=== PATIENT | male | born 1990 | race American Indian/Alaskan Native ===

== ENCOUNTER 2017-06-19 13:55 | Emergency (ER) | payer MEDICAID, OTHER ==
[2017-06-19 14:26] VITALS: BMI 22.1
[2017-06-19 14:28] VITALS: O2SAT 99
--- NOTE | 2017-06-19 14:39 | C.PDOC ---
History Of Present Illness Artie Malave is a 26 year old male with a past medical history of asthma, who presents complaining of a sore throat, congestion, and cough, persistent for the past month. Patient has also developed an achy pain in the muscles of his lower back. He is short of breath intermittently, for which he uses his inhaler with improvement. Patient also reports fever, and has been taking Dayquil and Nyquil on and off with improvement. PMD: [facility] Time Seen by Provider: 06/19/17 14:29 Chief Complaint (Nursing): ENT Problem History Per: Patient History/Exam Limitations: no limitations Onset/Duration Of Symptoms: Days (x 1 month) Current Symptoms Are (Timing): Still Present Location Of Pain: Throat Past Medical History Reviewed: Historical Data, Nursing Documentation, Vital Signs Vital Signs: Last Vital Signs Temp 97.8 F 06/19/17 14:26 Pulse 97 H 06/19/17 14:26 Resp 20 06/19/17 14:26 BP 106/74 06/19/17 14:26 Pulse Ox 99 06/19/17 14:40 - Medical History PMH: Asthma Denies: Chronic Kidney Disease Surgical History: No Surg Hx Family History: States: Unknown Family Hx - Social History Hx Alcohol Use: Yes Hx Substance Use: Yes - Immunization History Hx Tetanus Toxoid Vaccination: No Hx Influenza Vaccination: No Hx Pneumococcal Vaccination: No Review Of Systems Except As Marked, All Systems Reviewed And Found Negative. Constitutional: Positive for: Fever ENT: Positive for: Nose Congestion, Throat Pain Respiratory: Positive for: Cough, Shortness of Breath Musculoskeletal: Positive for: Back Pain (with cough) Physical Exam - Physical Exam Appears: Non-toxic, No Acute Distress Skin: Normal Color, Warm, Dry Head: Atraumatic, Normacephalic Eye(s): bilateral: Normal Inspection, PERRL, EOMI Ear(s): Bilateral: Normal Nose: Normal Oral Mucosa: Moist Throat: Erythema Neck: Normal, Normal ROM Lymphatic: No Adenopathy Cardiovascular: Rhythm Regular Respiratory: Normal Breath Sounds (Lungs clear to auscultation), No Rhonchi, No Wheezing Neurological/Psych: Oriented x3, Normal Speech ED Course And Treatment O2 Sat by Pulse Oximetry: 99 (RA) Pulse Ox Interpretation: Normal - Radiology CXR: Interpreted by Me CXR Interpretation: Yes: No Acute Disease Reevaluation Time: 15:00 Reassessment Condition: Unchanged Medical Decision Making Medical Decision Making: Time: 14:34 Initial Impression: 26 year old male with URI symptoms Initial Plan: * Chest X-Ray 2 views * Reevaluation Disposition Counseled Patient/Family Regarding: Studies Performed, Diagnosis, Need For Followup, Rx Given - Disposition Referrals: [facility] [Outside] Disposition: HOME/ ROUTINE Disposition Time: 15:00 Condition: STABLE Prescriptions: Amoxicillin 875 mg PO BID #20 tablet Instructions: Upper Respiratory Infection (ED), Pharyngitis (ED), Asthma (ED) Forms: [employer] (Urdu) - Clinical Impression Clinical Impression: Exacerbation of asthma, URI (upper respiratory infection), Pharyngitis - Scribe Statement The provider has reviewed the documentation as recorded by the Scribjeimy Marino All medical record entries made by the Jayyibjeimy were at my direction and personally dictated by me. I have reviewed the chart and agree that the record accurately reflects my personal performance of the history, physical exam, medical decision making, and the department course for this patient. I have also personally directed, reviewed, and agree with the discharge instructions and disposition.
[2017-06-19 15:07] VITALS: BP 112/68; PULSE 88; RESP 18; TEMP 98.2
--- NOTE | 2017-06-19 18:14 | RAD ---
HISTORY: cough x1 month COMPARISON: Chest radiographs 11/06/2015. TECHNIQUE: Chest PA and lateral FINDINGS: LUNGS: No active pulmonary disease. PLEURA: No significant pleural effusion identified. No pneumothorax apparent. CARDIOVASCULAR: Normal. OSSEOUS STRUCTURES: No significant abnormalities. VISUALIZED UPPER ABDOMEN: Normal. OTHER FINDINGS: None. IMPRESSION: No interval acute cardiopulmonary disease appreciated.
== END 2017-06-19 15:10 | disposition home or self-care (01) ==
LOC: C.ER 13:55
DX: J45.901 Unspecified asthma with (acute) exacerbation (principal); J02.9 Acute pharyngitis, unspecified; J06.9 Acute upper respiratory infection, unspecified

== ENCOUNTER 2018-01-26 12:51 | Emergency (ER) | payer OTHER ==
[2018-01-26 12:51] VITALS: BMI 22.1
[2018-01-26] MEDS ORDERED: Albuterol-Ipratrop 3 mg / 0.5 (3 ml) UD ONE ×2 (13:13→13:47)
[2018-01-26] MEDS ORDERED: Sodium Chloride 0.9% 1,000 ML IV ONE (13:26)
--- NOTE | 2018-01-26 13:26 | C.PDOC ---
History Of Present Illness 27-YEAR-OLD MALE, PRESENTS TO THE EMERGENCY DEPARTMENT WITH COMPLAINTS OF SEVERE SHORTNESS OF BREATH AND CHEST TIGHTNESS ONGOING FOR THE PAST SEVERAL DAYS. +ASHTMA HX, NO RELIEF DESP PUMP USE AT HOME. PT DENIES PRIOR ADMISSION FOR ASTHMA. 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 +RETRACT, DEC SOUNDS BL, +EXP WHEEZE, SPEAKING FULL SENTENCES REMAINDER NEG Time Seen by Provider: 01/26/18 13:14 Chief Complaint (Nursing): Shortness Of Breath History Per: Patient Past Medical History Reviewed: Historical Data, Nursing Documentation, Vital Signs Vital Signs: Last Vital Signs Temp Pulse Resp 20 01/26/18 13:17 BP Pulse Ox - Medical History PMH: Asthma Denies: Chronic Kidney Disease Family History: States: No Known Family Hx - Social History Hx Alcohol Use: Yes Hx Substance Use: Yes - Immunization History Hx Tetanus Toxoid Vaccination: No Hx Influenza Vaccination: No Hx Pneumococcal Vaccination: No Review Of Systems Constitutional: Negative for: Fever, Chills Cardiovascular: Negative for: Chest Pain, Palpitations Respiratory: Positive for: Shortness of Breath, Wheezing Gastrointestinal: Negative for: Nausea, Vomiting Musculoskeletal: Negative for: Back Pain Physical Exam - Physical Exam Appears: Non-toxic, Other (MOD DISTRESS) Skin: Normal Color, Warm, Dry Head: Atraumatic, Normacephalic Eye(s): bilateral: Normal Inspection, PERRL, EOMI Nose: Normal Oral Mucosa: Moist Lips: Normal Appearing Neck: Normal ROM Cardiovascular: Rhythm Regular, No Murmur Respiratory: Other ( +RETRACT, DEC SOUNDS BL, +EXP WHEEZE BL, SPEAKING FULL SENTENCES ) Gastrointestinal/Abdominal: Soft, No Tenderness, No Guarding, No Rebound Back: Normal Inspection Extremity: Normal ROM, No Deformity, No Swelling Neurological/Psych: Oriented x3, Normal Speech ED Course And Treatment - Laboratory Results Result Diagrams: 01/26/18 13:44 01/26/18 13:44 Progress - Re-Evaluation Re-evaluation Note: 01/26/18 14:10 CO PERSIST SOB. VSS. MILD IMPROVE B/L BS SP MEDS. 01/26/18 15:29 FEELS BETTER NARD WISHES DC NOW - Data Reviewed Data Reviewed: Lab, Diagnostic imaging, Old records Medical Decision Making Medical Decision Making: PS HE "ABSOLUTELY HAS TO BE AT WORK AT 8PM" PT IS AWARE OF NEED FOR APPROPRIATE MEDICAL OBSERVATION AND AGREES TO MANAGEMENT PLAN Disposition Counseled Patient/Family Regarding: Studies Performed, Diagnosis, Need For Followup, Rx Given - Disposition Referrals: YOUR,PMD [Other] [facility] [Outside] [facility] [Outside] Disposition: HOME/ ROUTINE Disposition Time: 15:30 Condition: IMPROVED Prescriptions: Albuterol HFA [Ventolin HFA 90 mcg/actuation (8 g)] 1 puff IH Q4 #1 inhaler predniSONE [Prednisone] 60 mg PO DAILY #12 tab Instructions: Asthma, Adult (DC) Forms: [employer] (Amharic) - Clinical Impression Clinical Impression: Exacerbation of asthma - Scribe Statement The provider has reviewed the documentation as recorded by the Scribe (Christa Hitchcock) All medical record entries made by the Scribe were at my direction and personally dictated by me. I have reviewed the chart and agree that the record accurately reflects my personal performance of the history, physical exam, medical decision making, and the department course for this patient. I have also personally directed, reviewed, and agree with the discharge instructions and disposition.
[2018-01-26] MEDS: Albuterol-Ipratrop 3 mg / 0.5 (3 ml) UD IH SCH ×3 (13:30→14:28)
[2018-01-26] MEDS ORDERED: MethylPREDNISolone 40 mg Vial ONE (13:48)
[2018-01-26] MEDS ORDERED: Sodium Chloride 0.9% 1,000 ML ONE (13:48)
[2018-01-26 13:53] LABS: BASO % 0.5 % (0.0-2.0); EOS # 0.7 K/uL (0.0-0.7); EOS % 13.4 % (0.0-4.0); HEMOGLOBIN 14.7 g/dL (12.0-18.0); LYMPH # 1.2 K/uL (1.0-4.3); LYMPH % 22.2 % (20.0-40.0); MEAN CELL VOLUME 86.5 fL (80.0-94.0); MEAN CORPUSCULAR HGB CONC 32.4 g/dL (33.0-37.0); MEAN PLATELET VOLUME 9.3 fL (7.2-11.7); MONO # 0.6 K/uL (0.0-0.8); MONO % 10.3 % (0.0-10.0); NEUT # 2.9 K/uL (1.8-7.0); NEUT % 53.6 % (50.0-75.0); NRBC % 0.1 % (0.0-2.0); RBC 5.26 Mil/uL (4.40-5.90); RED CELL DISTRIBUTION WIDTH 12.4 % (11.5-14.5); WHITE BLOOD COUNT 5.4 K/uL (4.8-10.8)
[2018-01-26 14:07] LABS: BLOOD UREA NITROGEN 11 mg/dL (9-20); CALCIUM 9.4 mg/dl (8.6-10.4); GFR AFRICAN-AMERICAN > 60; GFR NON-AFRICAN AMERICAN > 60
--- NOTE | 2018-01-26 14:15 | RAD ---
Date of service: 01/26/2018 PROCEDURE: CHEST RADIOGRAPH, 1 VIEW HISTORY: Shortness of breath COMPARISON: 06/19/2017 FINDINGS: LUNGS: The lungs are well inflated and clear. PLEURA: No pneumothorax or pleural fluid seen. CARDIOVASCULAR: Normal. OSSEOUS STRUCTURES: No significant abnormalities. VISUALIZED UPPER ABDOMEN: Normal. OTHER FINDINGS: None. IMPRESSION: No active pulmonary disease.
[2018-01-26 15:42] VITALS: BP 117/70; PULSE 88; RESP 18; TEMP 97.8; O2SAT 96
--- NOTE | 2018-01-28 12:24 | CARD ---
APPROVED REPORT Date of service: 01/26/2018 EKG Measurement Heart [id number] <Conclusion> Sinus tachycardia Otherwise normal ECG
== END 2018-01-26 16:39 | disposition home or self-care (01) ==
LOC: C.ER 12:51
DX: J45.901 Unspecified asthma with (acute) exacerbation (principal)
CPT/HCPCS: 71045; 80048; 85025; 93005; 94640; 96372; 96374; 96375; 99283; J1885; J2930; J3105; J7030

== ENCOUNTER 2018-03-20 15:01 | Emergency (ER) | payer OTHER ==
[2018-03-20 15:02] VITALS: BMI 22.1
[2018-03-20 15:08] VITALS: BP 122/72; PULSE 97; RESP 17; TEMP 97.6; O2SAT 97
[2018-03-20] MEDS ORDERED: Bacitracin 500 Units/gm Oint Foilpak UD TOP ONE (15:34)
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
[2018-03-20] MEDS ORDERED: Bacitracin 500 Units/gm Oint Foilpak UD ONE (15:45)
[2018-03-20] MEDS ORDERED: Tdap Vaccine 0.5 ml Vial (10-64 yrs) IM ONE (15:48)
[2018-03-20] MEDS ORDERED: Tetanus/Diphtheria Toxoids 0.5 ml Syringe IM ONE (15:57)
== END 2018-03-20 16:11 | disposition home or self-care (01) ==
LOC: C.ER 15:01
DX: S61.402A Unspecified open wound of left hand, initial encounter (principal); W22.8XXA Striking against or struck by other objects, initial encounter; Z23 Encounter for immunization

== ENCOUNTER 2018-04-21 09:12 | Emergency (ER) | payer OTHER ==
[2018-04-21 09:20] VITALS: BMI 24.0
[2018-04-21 09:22] VITALS: RESP 18
[2018-04-21] MEDS ORDERED: Albuterol-Ipratrop 3 mg / 0.5 (3 ml) UD ONE ×2 (09:59→10:26)
--- NOTE | 2018-04-21 10:19 | C.PDOC ---
History Of Present Illness 27 y/o male, with PMHx of asthma, presents to ED for evaluation of feeling tight around the rib cage when taking deep inspiration. Pt states he was seen at [facility] and was given steroid injection and nebulizer treatment. Pt was prescribed Prednisone but was unable to fill it. Pt was last seen here in January for shortness of breath and was discharged home. Pt states he has been hospitalized for asthma as a child. Pt states he feel febrile and has chills. Pt feels the change of weather causes exacerbation of his asthma. Otherwise, denies nausea, vomiting, abdominal pain, chest pain, or any other associated symptoms at this time. Time Seen by Provider: 04/21/18 09:25 Chief Complaint (Nursing): Shortness Of Breath History Per: Patient History/Exam Limitations: no limitations Onset/Duration Of Symptoms: Days Current Symptoms Are (Timing): Still Present Past Medical History Reviewed: Historical Data, Nursing Documentation, Vital Signs Vital Signs: Last Vital Signs Temp 98.9 F 04/21/18 09:21 Pulse 86 04/21/18 09:21 Resp 18 04/21/18 09:21 BP 105/68 04/21/18 09:21 Pulse Ox 97 04/21/18 09:21 - Medical History PMH: Asthma Denies: Chronic Kidney Disease Family History: States: Unknown Family Hx - Social History Hx Alcohol Use: Yes Hx Substance Use: Yes - Immunization History Hx Tetanus Toxoid Vaccination: No Hx Influenza Vaccination: No Hx Pneumococcal Vaccination: No Review Of Systems Except As Marked, All Systems Reviewed And Found Negative. Constitutional: Positive for: Chills Cardiovascular: Negative for: Chest Pain, Palpitations Respiratory: Positive for: Shortness of Breath Gastrointestinal: Negative for: Nausea, Vomiting, Abdominal Pain Neurological: Negative for: Headache, Dizziness Physical Exam - Physical Exam Appears: Non-toxic, No Acute Distress Skin: Normal Color, Warm, Dry Head: Atraumatic, Normacephalic Eye(s): bilateral: Normal Inspection Oral Mucosa: Moist Neck: Normal ROM, Supple Chest: Symmetrical, No Tenderness Cardiovascular: Rhythm Regular, No Murmur Respiratory: Normal Breath Sounds, No Rales, No Rhonchi, No Wheezing, Other (speaking in full sentences) Gastrointestinal/Abdominal: Soft, No Tenderness Extremity: Normal ROM, No Pedal Edema Neurological/Psych: Oriented x3, Normal Speech ED Course And Treatment - Laboratory Results Result Diagrams: 10/04/18 10:36 04/21/18 10:36 ECG: Interpreted By Me, Viewed By Me ECG Rhythm: Sinus Rhythm ECG Interpretation: No Acute Changes Interpretation Of ECG: No ST/T wave changes. Rate From EC (bpm) O2 Sat by Pulse Oximetry: 97 (RA) Pulse Ox Interpretation: Normal Medical Decision Making Medical Decision Making: Plan: Blood work CXR EKG Solu-Medrol Duoneb IV fluids Patient feeling much better, laughing with friends. No fever, lungs clear. Peek flow 350. Disposition Counseled Patient/Family Regarding: Diagnosis, Need For Followup, Rx Given - Disposition Referrals: [facility] [Outside] Disposition: HOME/ ROUTINE Disposition Time: 12:32 Condition: STABLE Additional Instructions: Follow up with your doctor or our clinic. [facility]. Take medications as indicated. Prescriptions: Albuterol HFA [Ventolin HFA 90 mcg/actuation (8 g)] 1 puff IH QID PRN #1 puff PRN Reason: Cough Prednisone [Deltasone] 60 mg PO DAILY #12 tablet Instructions: Asthma, Adult (DC) Forms: [employer] (Stateless), General Discharge Instructions, Work Excuse - POA Present On Arrival: None - Clinical Impression Clinical Impression: Exacerbation of asthma - Scribe Statement The provider has reviewed the documentation as recorded by the Scribe KP All medical record entries made by the Scribe were at my direction and personally dictated by me. I have reviewed the chart and agree that the record accurately reflects my personal performance of the history, physical exam, medical decision making, and the department course for this patient. I have also personally directed, reviewed, and agree with the discharge instructions and disposition.
[2018-04-21] MEDS ORDERED: Sodium Chloride 0.9% 1,000 ML IV ONE (10:20)
[2018-04-21] MEDS ORDERED: Sodium Chloride 0.9% 1,000 ML ONE (10:26)
[2018-04-21] MEDS: Albuterol-Ipratrop 3 mg / 0.5 (3 ml) UD IH SCH ×3 (10:30→10:56)
[2018-04-21 10:40] LABS: BASO % 0.7 % (0.0-2.0); EOS # 0.4 K/uL (0.0-0.7); EOS % 7.8 % (0.0-4.0); HEMOGLOBIN 13.5 g/dL (12.0-18.0); LYMPH # 1.3 K/uL (1.0-4.3); LYMPH % 24.9 % (20.0-40.0); MEAN CELL VOLUME 88.1 fL (80.0-94.0); MEAN CORPUSCULAR HEMOGLOBIN 28.4 pg (27.0-31.0); MEAN CORPUSCULAR HGB CONC 32.3 g/dL (33.0-37.0); MEAN PLATELET VOLUME 8.6 fL (7.2-11.7); MONO # 0.5 K/uL (0.0-0.8); MONO % 9.3 % (0.0-10.0); NEUT # 2.9 K/uL (1.8-7.0); NEUT % 57.3 % (50.0-75.0); RBC 4.74 Mil/uL (4.40-5.90); RED CELL DISTRIBUTION WIDTH 12.4 % (11.5-14.5); WHITE BLOOD COUNT 5.1 K/uL (4.8-10.8)
[2018-04-21 10:53] LABS: BLOOD UREA NITROGEN 15 mg/dL (9-20); GFR NON-AFRICAN AMERICAN > 60
--- NOTE | 2018-04-21 12:06 | RAD ---
HISTORY: SOB COMPARISON: Chest x-ray performed 01/26/18 TECHNIQUE: Chest, one view. FINDINGS: LUNGS: No focal consolidation. Please note that chest x-ray has limited sensitivity for the detection of pulmonary masses. PLEURA: No significant pleural effusion identified. No definite pneumothorax . CARDIOVASCULAR: The cardiomediastinal silhouette appears within normal limits of size. OSSEOUS STRUCTURES: No acute osseous abnormality identified. VISUALIZED UPPER ABDOMEN: Unremarkable. OTHER FINDINGS: None. IMPRESSION: No focal consolidation, significant pleural effusion, or definite pneumothorax identified.
[2018-04-21 12:43] VITALS: BP 121/81; PULSE 63; TEMP 98.4; O2SAT 100
--- NOTE | 2018-04-26 23:36 | CARD ---
APPROVED REPORT Date of service: 04/21/2018 EKG Measurement Heart [id number] <Conclusion> Normal sinus rhythm with sinus arrhythmia Normal ECG
== END 2018-04-21 12:45 | disposition home or self-care (01) ==
LOC: C.ER 09:12
DX: J45.901 Unspecified asthma with (acute) exacerbation (principal)
CPT/HCPCS: 71045; 80048; 85025; 94640; 96361; 96374; 99284; J2930; J7030